=== PATIENT | female | born 1980 | race Caucasian/White ===

== ENCOUNTER 2020-07-19 06:43 | Inpatient (IN) | payer OTHER ==
[2020-07-19 07:08] VITALS: RESP 16
[2020-07-19 07:30] LABS: Basophils # (A) 0.1 k/uL (0-0.2); Basophils % (A) 1 %; Eosinophils # (A) 0.2 k/uL (0-0.7); Eosinophils % (A) 2 %; HCT 39.4 % (34.0-46.0); HGB 13.5 gm/dL (11.4-16.0); Lymphocytes # (A) 3.8 k/uL (1.0-4.8); Lymphocytes % (A) 35 %; MCH 31.1 pg (25.0-35.0); MCHC 34.3 g/dL (31.0-37.0); MCV 90.7 fL (80.0-100.0); Mean Platelet Volume 7.3; Monocytes # (A) 0.5 k/uL (0-1.0); Monocytes % (A) 4 %; Neutrophils # (A) 6.2 k/uL (1.3-7.7); Neutrophils % (A) 57 %; Platelet Count 284 k/uL (150-450); RBC 4.35 m/uL (3.80-5.40); RDW 12.8 % (11.5-15.5); WBC 10.9 k/uL (3.8-10.6)
[2020-07-19] MEDS ORDERED: METOCLOPRAMIDE 5 MG/ML 2 ML VIAL IVP PRN (08:08)
[2020-07-19] MEDS ORDERED: ACETAMINOPHEN TAB 325 MG TAB PO PRN (08:08)
[2020-07-19] MEDS ORDERED: ONDANSETRON 4 MG/2 ML VIAL IVP PRN (08:08)
[2020-07-19] MEDS: miSOPROStoL 200 MCG TAB VAGINAL SCH ×4 (08:17→20:32)
[2020-07-19] MEDS: LACTATED RINGERS 1,000 ML IV SCH ×4 (08:25→20:43)
[2020-07-19] MEDS: BUTORPHANOL 1 MG/ML 1 ML VIAL IV PRN ×5 (09:23→20:32)
[2020-07-19 21:12] LABS: INR 0.9 (<1.2); Partial Thromboplastin Time 22.1 sec (22.0-30.0); Prothrombin Time 9.6 sec (9.0-12.0)
[2020-07-19] MEDS ORDERED: diphenhydrAMINE 50 MG/ML 1 ML VIAL IVP PRN ×2 (21:41)
[2020-07-19] MEDS ORDERED: BENZOCAINE/MENTHOL SPRAY 1 GM/SPRAY AEROSOL TOPICAL PRN (21:41)
[2020-07-19] MEDS ORDERED: diphenhydrAMINE 25 MG CAP PO PRN (21:41)
[2020-07-19] MEDS ORDERED: SIMETHICONE 80 MG CHEWABLE PO PRN (21:41)
[2020-07-19] MEDS ORDERED: diphenhydrAMINE 50 MG CAP PO PRN (21:41)
[2020-07-19] MEDS ORDERED: IBUPROFEN 600 MG TAB PO PRN (21:41)
[2020-07-19] MEDS ORDERED: OXYTOCIN 20 UNITS/1000 ML NS 1,000 ML IV SCH (21:45)
--- NOTE | 2020-07-19 21:49 | P.HPOB ---
History of Present Illness H&P Date: 07/19/20 Chief Complaint: 24 week intrauterine demise The patient is a 40-year-old 5 para 2021 who was found in the office yesterday to have a roughly 23+ week fetus with no heart tones making the diagnosis of intrauterine demise. She was counseled regarding options and it was recommended to have induction of labor. She could not do that yesterday but was admitted this morning for induction of labor using Cytotec 400 g every 4 hours. Her is complicated by a diagnosis of advanced maternal age for which she did not have trisomy testing antenatally. She additionally was diagnosed with gestational diabetes as she could not tolerate a three-hour glucose tolerance test. She carries a history of 2 previous sections and was planning repeat with tubal ligation until this finding. Obstetrical history: 5 para 2021 with 2 previous term sections. Current statistics are listed in history of present illness. EDC of 11/07/2020 was established by 10 week ultrasound. Laboratory workup demonstrates a blood type of A+ with a negative antibody screen. Rubella status is immune. The remainder of the laboratory workup was within normal limits. Early Glucola was significantly elevated and the patient chose to be treated is a diabetic thereafter. Blood sugars have been relatively normal. Group B strep status was never checked as she is not at the appropriate gestational age. Gynecologic history: Unremarkable with no history of any infections to include STDs. Review of Systems Review of systems is confined to history of present illness. Past Medical History History of Any Multi-Drug Resistant Organisms: None Reported Past Surgical History: Bariatric Surgery, Breast Surgery, Section Past Anesthesia/Blood Transfusion Reactions: No Reported Reaction Past Psychological History: No Psychological Hx Reported Smoking Status: Never smoker - Past Family History Father Family Medical History: No Reported History Medications and Allergies Home Medications Medication Instructions Recorded Confirmed Type Pnv No.95/Ferrous Fum/Folic AC 1 each PO DAILY 07/19/20 07/19/20 History [ Multivitamin Tablet] Allergies Allergy/AdvReac Type Severity Reaction Status Date / Time No Known Allergies Allergy Verified 07/19/20 06:59 Exam Vital Signs Temp Pulse Resp BP 07/19/20 07:01 98.1 F 60 16 140/69 Intake and Output 07/19/20 07/19/20 07/19/20 06:59 14:59 22:59 Other: # Voids 0 1 Weight 106.594 kg In general, this is a well-developed, mildly obese white female in no acute distress. She is appropriately emotionally upset. Her heart has a regular rhythm and rate without murmur. Her lungs are clear to auscultation bilaterally in all doan. Her abdomen is appropriately gravid, nondistended, soft, nontender, and without any palpable masses aside from uterine fundus. Her extremities are without any cyanosis, clubbing, or edema and are nontender to palpation bilaterally. Digital cervical examination demonstrates her cervix to be fingertip dilated, thick, and relatively high. 400 g of Cytotec is placed in the posterior fornix per protocol. Results Result Diagrams: 07/19/20 07:10 Abnormal Lab Results - Last 24 Hours (Table) 07/19/20 Range/Units 07:10 WBC 10.9 H (3.8-10.6) k/uL Assessment and Plan (1) demise Current Visit: Yes Status: Acute Code(s): [id number] - SNOMED Code(s): 360642544 (2) 24 weeks gestation of Current Visit: Yes Status: Acute Code(s): Z3A.24 - 24 WEEKS GESTATION OF SNOMED Code(s): 353367238 Plan: The patient is admitted for Cytotec induction. She will continue to have 400 g placed every 4 hours until delivery. She is a good candidate for either IV or epidural analgesia, whichever she may choose. We had a long discussion regarding potential causes and will await delivery to see if any answers become available. They are choosing to have the baby cremated privately.
--- NOTE | 2020-07-19 21:52 | P.PROBDLV ---
Vaginal Delivery Note - . Vaginal Delivery Note: The patient is a 40-year-old 5 para 2021 admitted at approximately 24 weeks of gestation by good dating parameters. She is admitted with a known intrauterine demise discovered by ultrasound one day ago. Her has been complicated by the diagnosis of gestational diabetes. Blood sugars have been normal. She also falls into the category of advanced maternal age and did not have testing. On labor and delivery, she had Cytotec 400 g placed in the vaginal fornix every 4 hours and began to have moderate cramping late this afternoon. She then suddenly this evening delivered the fetus was shortly followed by the placenta which was intact all of which occurred in my absence. I arrived and inspected the perineum and there were no lacerations of the perineum, vagina, or cervix. Inspection of the fetus demonstrates findings consistent with probable Down's syndrome or trisomy 21 as the tongue is protruding and the use appear to be somewhat low-set as well as some indicating findings with the eyes. I did not examine the soles of the feet or the palms. The placenta did appear to be entirely intact with a very short three-vessel cord inserted relatively centrally. There was some maceration of the fetus present as well. Estimated blood loss appeared to be approximately 100 mL or less. There were no complications. Patient is resting comfortably with the fetus. She appears to be grieving quite appropriately.
--- NOTE | 2020-07-19 21:56 | P.DS ---
Providers Date of admission: 07/19/20 06:43 Expected date of discharge: 07/19/20 Attending physician: Murray Salgado Primary care physician: Stated None - Discharge Diagnosis(es) (1) demise Current Visit: Yes Status: Acute (2) 24 weeks gestation of Current Visit: Yes Status: Acute (3) Spontaneous vaginal delivery Current Visit: Yes Status: Acute Hospital Course: The patient is a 40-year-old 5 para 2021 admitted at 24 weeks of gestation by good dating parameters with a known intrauterine demise. She does fall into the category of advanced maternal age and did not have testing. She otherwise was diagnosed with gestational diabetes with normal blood sugars. She was found by ultrasound yesterday to have an intrauterine demise and counseled regarding delivery. She presented today and had Cytotec induction with 400 g placed in the posterior vaginal fornix every 4 hours. She progressed slowly and then very quickly delivered this evening a nonviable fetus that appears to have features consistent with trisomy 21. The placenta was delivered spontaneously and intact as well. The patient is grieving appropriately and has no ongoing bleeding or other concerns and does wish to be discharged home. She therefore was discharged home on day of delivery to follow-up in the office in 2 weeks for a recheck and 6 weeks routinely. Discharge instructions included calling for any significantly increased bleeding or foul-smelling lochia, significantly increased fever or abdominal pain, perineal complaints, breast complaints, or anything else that concerned her. She was instructed to have nothing in the vagina for at least 4- 6 weeks time. She understood her instructions and agrees follow up as noted above. Discharge medications included only a prescription for Zoloft 50 mg daily, #30 dispensed with 5 refills. She was otherwise to use [id number] analgesic pain medications as needed. Maternal blood type is A+ and rubella status is immune. Procedures: #1. Cytotec induction #2. Spontaneous vaginal delivery of intrauterine demise Patient Condition at Discharge: Stable Plan - Discharge Summary New Discharge Prescriptions: No Action Pnv No.95/Ferrous Fum/Folic AC [ Multivitamin Tablet] 1 each PO DAILY Discharge Medication List Pnv No.95/Ferrous Fum/Folic AC [ Multivitamin Tablet] 1 each PO DAILY 07/19/20 [History] Follow up Appointment(s)/Referral(s): Murray Salgado MD [STAFF PHYSICIAN] - 2 Weeks Discharge Disposition: HOME SELF-CARE
[2020-07-19 23:59] VITALS: BP 128/61; PULSE 64; TEMP 97.3
== END 2020-07-19 23:15 | disposition home or self-care (01) | DRG 807 ==
LOC: 4FBP 06:43
PROVIDERS: ADMIT Obstetrics & Gynecology; ATTEND Obstetrics & Gynecology
PROC: 3E0P7VZ Introduction of Hormone into Female Reproductive, Via Natural or Artificial Opening (ICD-10-PCS; principal; 2020-07-19)
PROC: 10E0XZZ Delivery of Products of Conception, External Approach (ICD-10-PCS; principal; 2020-07-19)
DX: O36.4XX0 Maternal care for intrauterine death, not applicable or unspecified (principal); Z37.1 Single stillbirth; O24.429 Gestational diabetes mellitus in childbirth, unspecified control; O34.219 Maternal care for unspecified type scar from previous cesarean delivery; O69.3XX0 Labor and delivery complicated by short cord, not applicable or unspecified; Z3A.24 24 weeks gestation of pregnancy
CPT/HCPCS: 85025; 85610; 85730; 86850; 86900; 86901; 88307